=== PATIENT | male | born 1960 | race Caucasian/White ===

== ENCOUNTER → 2016-08-12 | Outpatient (CLI) | payer BC ==
--- NOTE | 2016-08-12 21:09 | CT ---
EXAMINATION TYPE: CT urogram wo/w con DATE OF EXAM: 08/12/2016 8:35 PM COMPARISON: NONE HISTORY: Pt states of hematuria [id number]. CT DLP: 1811.4 mGycm Automated exposure control for dose reduction was used. CONTRAST: Performed without and with IV Contrast, patient injected with 100 mL of Omnipaque 300. FINDINGS: Multiple axial sections were obtained from the diaphragm to the floor of the pelvis without and subse quently with intravenous contrast. This is according to the urogram protocol. Lung bases are clear of consolidation. There is no pleural effusion. The noncontrast images show no r enal calculus. The liver spleen pancreas gallbladder appear normal. Bile ducts are not dilated. There is no adrenal mass. Kidneys show satisfactory contrast opacification. There is no hydronephrosis. Ureters are not d ilated. There is no retroperitoneal adenopathy. There is no ascites. There are a few sigmoid divertic denny. There is some thickening of the wall of the urinary bladder on the left side with calcification . This measures up to 2 cm in thickness. There is no ascites. Appendix appears normal. I see no bony destructive process. IMPRESSION: THERE IS URINARY BLADDER WALL THICKENING ON THE LEFT SIDE MAINLY IN THE DOME OF THE BLADDER THAT COUL D RELATE TO A TUMOR. FOLLOW-UP IS RECOMMENDED. NO EVIDENCE OF RENAL STONE OR OBSTRUCTION.
== END | disposition home or self-care (01) ==
LOC: RADCTMAIN 18:28
PROVIDERS: ATTEND Urology
DX: R93.8 Abnormal findings on diagnostic imaging of other specified body structures (principal); R31.0 Gross hematuria
CPT/HCPCS: 74178; 74400; Q9967

== ENCOUNTER → 2017-11-10 | Outpatient (CLI) | payer BC ==
[2017-11-10 15:01] LABS: Blood Urea Nitrogen 14 mg/dL (9-20)
--- NOTE | 2017-11-10 16:57 | CT ---
EXAMINATION TYPE: CT abdomen pelvis w con DATE OF EXAM: 11/10/2017 COMPARISON: CT urogram 08/12/2016 INDICATION: Staging bladder cancer. DLP: 953 mGycm, Automated exposure control for dose reduction was used. CONTRAST: 100 mL of Isovue M300. Study performed with Oral Contrast TECHNIQUE: Axial images were obtained from above the diaphragm to the pubic rami in the axial plane a t 5 mm thick sections. Reconstructed images are reviewed on the computer in the coronal plane. FINDINGS: Limited CT sections are obtained the lung bases. The lung bases are clear. CT ABDOMEN: Liver: Normal Spleen: Normal Pancreas: Normal Adrenal glands: The adrenal glands are normal. Gallbladder: Normal Kidneys: No masses are evident. No hydronephrosis is present. No cysts are present. Delayed images were obtained through the kidneys, which remain unremarkable. Aorta: Vascular calcification is within the aorta. Inferior vena cava: Normal. CT PELVIS: Loops of bowel within the abdomen and pelvis are normal. There are loops of bowel which are incom pletely distended or lack oral contrast limiting their evaluation. Sigmoid diverticulosis without acu te diverticulitis is present. Appendix: Normal as visualized. Urinary bladder: Close attention is paid to the urinary bladder. Minimal wall thickening posteriorly is not excluded. Contrast within the urinary bladder appears somewhat irregular which can be related to mixing. The ureterovesical junctions appear within normal limits as visualized. Prior wall thicken ing is not as well appreciated on the current exam. No suspicious pelvic adenopathy is evident. A small right obturator canal lymph node is noted. There is an enlarged lymph node below the level of the renal arteries and veins in the retrocrural aortic r egion measuring 1.1 cm. Series 3 image 38 and additional 0.8 cm lymph nodes in the periaortic region slightly superior. A couple of small left inguinal lymph nodes are present. This may have been presen t previously but do not appear enlarged over the interval. Genitourinary structures: Mildly prominent Osseous structures: No suspicious lytic or sclerotic lesions. IMPRESSIONS: 1. Sigmoid diverticulosis. 2. Prominent lymph node in the periaortic region with a few additional small lymph nodes. These findi ngs appear stable from 2017. 3. Urinary bladder wall thickening is not as well appreciated on the current exam
== END | disposition home or self-care (01) ==
LOC: RADCTMAIN 14:27
PROVIDERS: ATTEND Urology
DX: K57.30 Diverticulosis of large intestine without perforation or abscess without bleeding (principal)
CPT/HCPCS: 82565; 84520; 74177; 36415; Q9967